=== PATIENT | female | born 1985 | race Caucasian/White ===

== ENCOUNTER 2025-07-31 01:23 | Observation (INO) | payer MEDICAID ==
[~2025-07-31] VITALS: Ht 142.2 cm; Wt 113.4 kg
[2025-07-31] MEDS ORDERED: NIFE1TAB36 PO (02:09)
[2025-07-31] MEDS ORDERED: LABE100T7 PO (02:09)
[2025-07-31 03:00] LABS: Urine Protein, UAD Negative (Negative)
--- NOTE | 2025-07-31 04:38 | DVH ---
INDICATION: GENERALIZED ABD PAIN TECHNIQUE: Multiple real-time sonographic images of the abdomen were obtained. COMPARISON: None. FINDINGS: The liver is homogenous in echogenicity. The liver measures 24.3 cm. There is intrahepatic biliary ductal dilatation is noted. The gallbladder wall measures 0.3 cm and is unremarkable. No gallstones or sludge is seen. The common duct measures 0.4 cm and is unremarkable. No pericholecystic fluid is noted. There is a negative sonographic arroyo's sign. The right kidney measures 9.3 cm. No hydronephrosis. The pancreas is not well visualized due to obscuration from bowel gas. The visualized portions of the IVC and aorta are grossly unremarkable. IMPRESSION: 1. Intrahepatic biliary ductal dilatation. 2. No gallstones or acute cholecystitis. 3. Hepatomegaly.
--- NOTE | 2025-07-31 04:42 | DVH ---
EXAM: Obstetric ultrasound HISTORY: Abdominal pain TECHNIQUE: Multiple real-time grayscale images of the gravid uterus with duplex Doppler color flow and M-mode spectral analysis. COMPARISON: None. FINDINGS: IUP single live fetus at 35 weeks 1 day average ultrasound age (AUA) based on composite averages of the BPD, head circumference, abdominal circumference and femur length MEASUREMENTS: BPD: 8.6 cm GA: 34 w 4 days HC: 32.2 cm GA: 36 w 3 days AC: 30.5 cm GA: 34 w 3 days FL: 6.8 cm GA: 34 w 6 days Estimated weight 2508 grams; 59th percentile. heart rate 123 beats per minute DERIC 16.0 cm, MVP 6.8 cm ANATOMIC SURVEY: Complete anatomic survey was not performed at this time, however, there appear to be normal 4 chamber heart, stomach and kidneys. Urinary bladder not visualized. Fetus in cephalic lie. Fundal grade II placenta without previa or abruption Cervix closed measuring 3.9 cm in length IMPRESSION: 1. IUP single live fetus at 35 weeks 1 day AUA corresponding to an ROLANDO of 09/03/2025. 2. No abnormality detected.
--- NOTE | 2025-07-31 05:26 | DVHDS2 ---
Discharge Summary Date of Admission Jul 31, 2025 at 01:23 Date of Discharge: Jul 31, 2025 Admitting Diagnosis 34 2/7 weeks right sided pain Labs/Diagnostic Data: Laboratory Results Test 07/31/25 02:00 Urine Color Light-yellow (Yellow) Urine Clarity Turbid (Clear) Urine pH 6.5 (5.0-9.0) Urine Specific New Site 1.015 (1.001-1.035) Urine Protein Negative (Negative) Urine Ketones Negative (Negative) Urine Blood Negative /uL (Negative) Urine Nitrite Negative (Negative) Urine Bilirubin Negative (Negative) Urine Urobilinogen Normal mg/dL (Negative) Urine Leukocyte Esterase Negative /uL (Negative) Urine RBC 5 /hpf (0 - 4) Urine Microscopic WBC 5 /HPF (0-5) Urine Squamous Epithelial Cells Many /hpf (<5) Urine Bacteria Few /hpf (None Seen) Urine Glucose Normal mg/dL (Normal) Brief Hx & Hospital Course: BPP NST performed Consults/Reason for consult none Operations or Procedures NST BPP Condition at Discharge: Good Final Diagnosis/Problems List Reasuring FHT Bpp reasuring Discharge Disposition: Home Discharge Instruct/Medications Diet: Regular Activity: Light activity Activity comment: kick counts and labor precautioins Follow Up/Referral: as scheduled Medications: resume home meds Scheduled Labetalol Hcl (Labetalol Hcl), 100 MG PO BID, (Reported) Nifedipine (Nifedipine ER), 30 MG PO DAILY, (Reported) Discharge Statement: "Patient was advised to return to the ER or call 911 if any headaches, dizziness, shortness of breath, chest pain, abdominal pain, bleeding, fevers, or worsening of medical condition. Patient was counseled about treatment plan, medications, possible side effects, patientverbalized understanding. All questions were answered to the best of my ability. This discharge took greater then 30 minutes in planning, reviewing documentation, counseling the patient, and discussing with other team members." ASSESSMENT ASSESSMENT Assessment Visit Coding OBGYN Date of Service: Jul 31, 2025 Billing Provider: MARGARITA PAIGE DO [employer] Common Visit Codes: 58947-SDB/OBS SAME DATE (LOW), 80142-CXD/OBS SAME DATE (MOD), 38254-XIX/OBS SAME DATE (HIGH) [employer] Procedure Codes: 93925-31- NON-STRESS TEST MARGARITA PAIGE DO Jul 31, 2025 05:26
== END 2025-07-31 03:30 | disposition home or self-care (01) ==
LOC: UNDOADMOB 01:23 → LDRP 01:23
PROVIDERS: ADMIT Obstetrics & Gynecology; ATTEND Obstetrics & Gynecology
DX: O26.893 Other specified pregnancy related conditions, third trimester (principal); R10.31 Right lower quadrant pain; Z3A.34 34 weeks gestation of pregnancy; Z98.890 Other specified postprocedural states; Z79.899 Other long term (current) drug therapy
CPT/HCPCS: 59025; 76705; 76805; 81001; 82948; A4649; G0378